=== PATIENT | female | born 1990 | race Caucasian/White ===

== ENCOUNTER 2019-12-13 21:17 | Emergency (ER) | payer OTHER ==
[2019-12-13] MEDS ORDERED: KETOROLAC 30 MG/ML INJ ONE (21:58)
[2019-12-13 21:59] LABS: Absolute Lymphocytes (CBC) 2.4 K/uL (0.7-4.9); Basophils % 0.2 % (0-1.3); Hematocrit 33.8 % (36.0-45.0); Lymphocytes % 40.1 % (15.3-44.8); MPV 8.5 fL (7.6-11.3); RBC Red Blood Cell Count 3.66 M/uL (3.86-4.86)
--- NOTE | 2019-12-13 22:04 | RAD REPORT ---
EXAM DESCRIPTION: RAD - Chest Single View - 12/13/2019 9:59 pm CLINICAL HISTORY: CHEST PAIN Chest pain. COMPARISON: CHEST PA AND LAT 2 VIEW dated 09/06/2012; CHEST PA AND LAT 2 VIEW dated 02/08/2009 FINDINGS: Portable technique limits examination quality. Mild reticular prominence is seen which could indicate underlying viral pneumonitis or bronchitis. No focal consolidation typical of bacterial pneumonia seen. The heart is normal in size. No displaced f ractures.
[2019-12-13 22:05] LABS: Urine Blood NEGATIVE (NEG); Urine Glucose NEGATIVE (NEG); Urine Protein NEGATIVE (NEG); Urine Specific Gravity 1.025 (1.005-1.030)
[2019-12-13 22:05] LABS: Protime INR 1.04
[2019-12-13 22:17] LABS: ALT/SGPT 17 U/L (12-78); AST/SGOT 13 U/L (15-37); Albumin 3.5 g/dL (3.4-5.0); Alkaline Phosphatase 33 U/L (45-117); BUN Blood Urea Nitrogen 19 mg/dL (7-18); Bicarbonate 28 mmol/L (21-32); Bilirubin Direct < 0.1 mg/dL (0-0.2); Bilirubin Total 0.3 mg/dL (0.2-1.0); Glucose Level 103 mg/dL (74-106); Magnesium 1.8 mg/dL (1.8-2.4); NT PRO-BNP 39 pg/mL (<125); Potassium 3.5 mmol/L (3.5-5.1); Protein, Total 6.3 g/dL (6.4-8.2); Sodium Level 141 mmol/L (136-145); Troponin (Emerg Dept Use Only) < 0.02 ng/mL (0.0-0.045)
--- NOTE | 2019-12-14 00:07 | ER ---
Nurse's Notes [facility] Name: Francheska Cevallos Age: 29 yrs Sex: Female : 1990 Arrival Date: 12/13/2019 Time: 21:17 Bed 19 Private MD: Diagnosis: Pneumonia, unspecified organism;Other chest pain Presentation: 12/12 21:32 Chief complaint: Patient states: Reports she was sitting on the couch and started ea having chest pain that started in the left breast and radiated to back. pt reports pain started four hours ago. Coronavirus screen: The patient has NOT traveled to a country currently being monitored by the [facility] within the last 14 days. Ebola Screen: No symptoms or risks identified at this time. Initial Sepsis Screen: Does the patient meet any 2 criteria? No. Patient's initial sepsis screen is negative. Does the patient have a suspected source of infection? No. Patient's initial sepsis screen is negative. Risk Assessment: Do you want to hurt yourself or someone else? Patient reports no desire to harm self or others. 21:32 Method Of Arrival: Ambulatory ea 21:32 Acuity: BEATRIS 3 ea Historical: - Allergies: 22:21 No Known Allergies; ea - Home Meds: 22:21 None [Active]; ea - PMHx: 22:21 None; ea - PSHx: 22:21 None; ea - Immunization history:: Adult Immunizations up to date. - Social history:: Smoking status: Patient denies any tobacco usage or history of. Screenin:34 Abuse screen: Denies threats or abuse. Nutritional screening: No deficits noted. ea Tuberculosis screening: No symptoms or risk factors identified. Fall Risk None identified. Assessment: 21:35 General: Appears uncomfortable. Pain: Complains of pain in anterior aspect of left ea upper chest and left breast Pain radiates to back Pain began 4 hours ago. Neuro: Level of Consciousness is awake, alert, obeys commands, Oriented to person, place, time, situation. Cardiovascular: Patient's skin is warm and dry. Respiratory: Airway is patent Respiratory effort is even, unlabored, Respiratory pattern is regular, symmetrical. Derm: Skin is dry, Skin is pale, Skin temperature is warm. 22:57 Reassessment: Patient and/or family updated on plan of care and expected duration. Pain ea level reassessed. Patient is alert, oriented x 3, equal unlabored respirations, skin warm/dry/pink. Returned form CT. 23:15 Reassessment: Patient and/or family updated on plan of care and expected duration. Pain ea level reassessed. Patient is alert, oriented x 3, equal unlabored respirations, skin warm/dry/pink. 12/13 00:24 Reassessment: Patient and/or family updated on plan of care and expected duration. Pain ea level reassessed. Patient is alert, oriented x 3, equal unlabored respirations, skin warm/dry/pink. Discharge instruction given to patient, verbalized the understanding of instruction. Vital Signs: 12/12 21:32 BP 95 / 53; Pulse 66; Resp 18; Temp 99.7; Pulse Ox 100% ; ea 23:05 BP 99 / 60; Pulse 68; Resp 18; Pulse Ox 100% on R/A; ea 12/13 00:20 BP 109 / 62; Pulse 70; Resp 18; Pulse Ox 100% ; ea ED Course: 12/12 21:17 Patient arrived in ED. cl3 21:22 Chaz Stevens MD is Attending Physician. tw4 21:32 Shruthi Leo RN is Primary Nurse. ea 21:34 Triage completed. ea 21:34 Patient has correct armband on for positive identification. Placed in gown. Bed in low ea position. Call light in reach. threat monitoring analyst on. Pulse ox on. NIBP on. 21:45 Pulse ox on. NIBP on. mb4 21:46 Arm band placed on right wrist. Patient placed in an exam room, on a stretcher, on ea pulse oximetry. 21:47 Inserted saline lock: 20 gauge in right antecubital area, using aseptic technique. ea Blood collected. Patient maintains SpO2 saturation greater than 95% on room air. 21:54 Urine collected: clean catch specimen, clear. mb4 21:59 XRAY Chest (1 view) In Process Unspecified. EDMS 22:21 No provider procedures requiring assistance completed. ea 23:09 CT Chest For PE Angio In Process Unspecified. EDMS Administered Medications: 21:57 Drug: TORadol 30 mg Route: IVP; Site: right antecubital; ea 12/13 00:06 Follow up: Response: No adverse reaction; Pain is decreased ea 00:15 Drug: AZITHromycin 500 mg Route: PO; ea 00:15 CANCELLED (Other Intervention Used): Zithromax 500 mg PO once ea Outcome: 00:05 Discharge ordered by tw4 00:26 Patient left the ED. ea Signatures: Dispatcher [employer] Shruthi Llamas, RN Chaz Soria ea, MD MD tw4 Lisa Solorzano4 Teresa Oates cl3
--- NOTE | 2019-12-14 00:08 | EDPHYS ---
Physician Documentation [facility] Name: Francheska Cevallos Age: 29 yrs Sex: Female : 1990 Arrival Date: 12/13/2019 Time: 21:17 Bed 19 Private MD: ED Physician Chaz Stevens HPI: 12/13 03:40 This 29 yrs old Female presents to ER via Ambulatory with complaints of Chest tw4 Pain. 03:40 The patient or guardian reports chest pain that is located primarily in the anterior tw4 chest wall, left. The pain radiates to left back. Associated signs and symptoms: Pertinent positives:. The chest pain is described as dull. Duration: The patient or guardian reports a single episode. Modifying factors: The symptoms are alleviated by nothing. the symptoms are aggravated by nothing. Severity of pain: At its worst the pain was moderate in the emergency department the pain is unchanged. Historical: - Allergies: 12/12 22:21 No Known Allergies; ea - Home Meds: 22:21 None [Active]; ea - PMHx: 22:21 None; ea - PSHx: 22:21 None; ea - Immunization history:: Adult Immunizations up to date. - Social history:: Smoking status: Patient denies any tobacco usage or history of. ROS: 12/13 03:40 Constitutional: Negative for fever, chills, and weight loss, Eyes: Negative for injury, tw4 pain, redness, and discharge, Respiratory: Negative for shortness of breath, cough, wheezing, and pleuritic chest pain, Abdomen/GI: Negative for abdominal pain, nausea, vomiting, diarrhea, and constipation, Back: Negative for injury and pain, MS/Extremity: Negative for injury and deformity, Skin: Negative for injury, rash, and discoloration, Neuro: Negative for headache, weakness, numbness, tingling, and seizure. Cardiovascular: Positive for chest pain, Negative for edema, orthopnea, palpitations. Exam: 03:40 Constitutional: This is a well developed, well nourished patient who is awake, alert, tw4 and in no acute distress. Head/Face: Normocephalic, atraumatic. Chest/axilla: Normal chest wall appearance and motion. Nontender with no deformity. No lesions are appreciated. Cardiovascular: Regular rate and rhythm with a normal S1 and S2. No gallops, murmurs, or rubs. Normal PMI, no JVD. No pulse deficits. Respiratory: Lungs have equal breath sounds bilaterally, clear to auscultation and percussion. No rales, rhonchi or wheezes noted. No increased work of breathing, no retractions or nasal flaring. Abdomen/GI: Soft, non-tender, with normal bowel sounds. No distension or tympany. No guarding or rebound. No evidence of tenderness throughout. Back: No spinal tenderness. No costovertebral tenderness. Full range of motion. MS/ Extremity: Pulses equal, no cyanosis. Neurovascular intact. Full, normal range of motion. Neuro: Awake and alert, GCS 15, oriented to person, place, time, and situation. Cranial nerves II-XII grossly intact. Motor strength 5/5 in all extremities. Sensory grossly intact. Cerebellar exam normal. Normal gait. Psych: Awake, alert, with orientation to person, place and time. Behavior, mood, and affect are within normal limits. Vital Signs: 12/12 21:32 BP 95 / 53; Pulse 66; Resp 18; Temp 99.7; Pulse Ox 100% ; ea 23:05 BP 99 / 60; Pulse 68; Resp 18; Pulse Ox 100% on R/A; ea 12/13 00:20 BP 109 / 62; Pulse 70; Resp 18; Pulse Ox 100% ; ea MDM: 12/12 21:31 Patient medically screened. tw4 12/13 03:47 Data reviewed: vital signs, nurses notes. Data reviewed: lab test result(s), CBC, tw4 electrolytes, hepatic panel, EKG, radiologic studies, CT scan, plain films. Data interpreted: Pulse oximetry: Interpretation: normal. Counseling: I had a detailed discussion with the patient and/or guardian regarding: the historical points, exam findings, and any diagnostic results supporting the discharge/admit diagnosis, lab results, radiology results. Medication response: Toradol markedly relieved the patient's pain. Response to treatment: and as a result, I will admit patient. 12/12 21:43 Order name: Basic Metabolic Panel; Complete Time: 22:25 ea 12/12 22:25 Interpretation: Normal except: BUN 19; GFR 58. tw4 12/12 21:43 Order name: CBC with Diff; Complete Time: 22:25 ea 12/12 22:26 Interpretation: Normal except: RBC 3.66; HGB 11.5; HCT 33.8. [facility] 12/12 21:43 Order name: LFT's; Complete Time: 22:25 ea 12/12 22:26 Interpretation: Normal except: AST 13; ALK 33; TP 6.3. [facility] 12/12 21:43 Order name: Magnesium; Complete Time: 22:25 ea 12/12 22:26 Interpretation: Within normal limits: MG 1.8. 12/12 21:43 Order name: NT PRO-BNP; Complete Time: 22:25 12/12 22:26 Interpretation: Within normal limits: NT PRO-BNP 39. 12/12 21:43 Order name: PT-INR; Complete Time: 22:25 12/12 22:26 Interpretation: Within normal limits: PT 12.3. 12/12 21:43 Order name: Troponin (emerg Dept Use Only); Complete Time: 22:25 12/12 22:26 Interpretation: Within normal limits: TROPED < 0.02. 12/12 21:43 Order name: XRAY Chest (1 view); Complete Time: 22:25 12/12 22:26 Interpretation: No acute disease. [facility] 12/12 21:54 Order name: Urine Dipstick--Ancillary (enter results); Complete Time: 22:25 [facility] 12/12 22:26 Interpretation: Within normal limits. 12/12 21:54 Order name: Urine --Ancillary (enter results); Complete Time: 22:23 mw 12/12 21:58 Order name: D-Dimer; Complete Time: 22:25 EDMN 12/12 22:26 Interpretation: Abnormal: D-DIMER 623. 12/12 22:08 Order name: CT Chest For PE Angio 12/12 21:43 Order name: EKG; Complete Time: 21:44 ea 12/12 21:43 Order name: Cardiac monitoring; Complete Time: 21:46 ea 12/12 21:43 Order name: EKG - Nurse/Tech; Complete Time: 21:46 ea 12/12 21:43 Order name: IV Saline Lock; Complete Time: :46 ea 12/12 21:43 Order name: Labs collected and sent; Complete Time: 21:46 12/12 21:43 Order name: O2 Per Protocol; Complete Time: 21:46 ea 12/12 21:43 Order name: O2 Sat Monitoring; Complete Time: 21:46 ea Administered Medications: 12/12 21:57 Drug: TORadol 30 mg Route: IVP; Site: right antecubital; ea 12/13 00:06 Follow up: Response: No adverse reaction; Pain is decreased ea 00:15 Drug: AZITHromycin 500 mg Route: PO; ea 00:15 CANCELLED (Other Intervention Used): Zithromax 500 mg PO once ea Disposition: 03:56 Chart complete. tw4 Disposition: 12/14/19 00:05 Discharged to Home. Impression: Pneumonia, unspecified organism, Other chest pain. - Condition is Stable. - Discharge Instructions: Nonspecific Chest Pain, Community-Acquired Pneumonia, Adult. - Prescriptions for Zithromax 500 mg Oral Tablet - take 1 tablet by ORAL route once daily for 3 days; 3 tablet. - Medication Reconciliation Form, Thank You Letter, Antibiotic Education, Prescription Opioid Use form. - Follow up: Private Physician; When: Upon discharge from the Emergency Department; Reason: Recheck today's complaints, Continuance of care, Re-evaluation by your physician. - Problem is new. - Symptoms have improved. Signatures: Dispatcher [employer] Shruthi Llamas RN RN ea Wadley, Terrence, MD MD tw4 Corrections: (The following items were deleted from the chart) 12/12 21:58 21:51 D-DIMER+[id number].BRZ ordered. [facility] 12/13 00:15 00:07 Zithromax 500 mg PO once ordered. [facility] 00:26 00:05 12/14/2019 00:05 Discharged to Home. Impression: Pneumonia, unspecified organism; ea Other chest pain. Condition is Stable. Forms are Medication Reconciliation Form, Thank You Letter, Antibiotic Education, Prescription Opioid Use. Follow up: Private Physician; When: Upon discharge from the Emergency Department; Reason: Recheck today's complaints, Continuance of care, Re-evaluation by your physician. Problem is new. Symptoms have improved. tw4
[2019-12-14] MEDS ORDERED: AZITHROMYCIN 250 MG TAB ONE (00:13)
[2019-12-14 01:05] VITALS: TEMP 99.7; O2SAT 100
[2019-12-14 01:08] VITALS: BP 109/62
--- NOTE | 2019-12-14 06:55 | EKG ---
Test Date: 2019-12-13 Test Time: 21:23:11 Ems Coordinator: DARIAT MEASUREMENT RESULTS: Intervals: Rate: 62 FL: 138 QRSD: 102 QT: 430 QTc: 436 Cecil: P: 57 FL: 138 QRS: 55 T: 54 INTERPRETIVE STATEMENTS: Normal sinus rhythm Normal ECG No previous ECG available for comparison Electronically Signed On 12-14-19 06:54:39 CDT by Ru Zavala
--- NOTE | 2019-12-14 09:36 | RAD REPORT ---
EXAM DESCRIPTION: CT CHEST ANGIOGRAPHY WITH IV CONTRAST CLINICAL HISTORY: CHEST PAIN COMPARISON: None Available TECHNIQUE: Multiple helical axial tomographic images were obtained of the chest following administra tion of intravenous contrast per angiographic protocol. MIP reformatted images were obtained. This exam was performed according to our departmental dose-optimization program, which includes autom ated exposure control, adjustment of the mA and/or kV according to patient size and/or use of iterati ve reconstruction technique. FINDINGS: Thyroid gland: unremarkable. Axilla: unremarkable. Pulmonary arteries: Pulmonary arteries appear patent. No evidence of pulmonary embolism. Aorta: No evidence of aortic dissection or aneurysm. Mediastinum: Unremarkable. No adenopathy. Heart: Heart is normal in size. Lungs/airways: Small area of consolidation in the lateral lingula abutting the pleural surface noted. Airways are patent. Small nonspecific pleural-based calcification in the posterior right lower lobe is noted. Pleural spaces: No significant pleural effusion. No pneumothorax. Osseous: Unremarkable. Soft tissues: Unremarkable. Visualized abdomen: Unremarkable. IMPRESSION: 1. Small, pleural-based area of consolidation in the lingula which could be related to a n infectious or inflammatory process such as pneumonia. 2. No evidence of pulmonary embolus. Electronically signed by: Jose Jain MD 12/13/2019 11:25 PM CDT Due to temporary technical issues with the PACS/Fluency reporting system, reports are being signed by the in house radiologist as a courtesy to ensure prompt reporting. The interpreting radiologist is f ully responsible for the content of the report.
== END 2019-12-14 00:26 | disposition home or self-care (01) ==
LOC: ER 21:17
DX: J18.9 Pneumonia, unspecified organism (principal)
CPT/HCPCS: 93005; 85025; 80048; 36415; 83735; 81025; 85610; 85379; 80076; 81003; 84484; 83880; 71275; 71045; 96374; 99285; Q9967

== ENCOUNTER 2022-09-03 10:21 | Emergency (ER) | payer OTHER ==
--- OUTSIDE RECORDS SUMMARY | 2022-09-03 10:26 | XMS REPORT | Continuity of Care Document ---
:1990 Author Organization [facility] t Address [address] [place] [address] Care Team Providers Name Role Phone AGNIESZKA GILLIS Attending Clinician Unavailable PAM_EDUARDO_Cleve_Cecil Attending Clinician Unavailable Cheng Poon Attending Clinician [phone] Cornell Richardson Attending Clinician Unavailable Cheng Poon Attending Clinician Unavailable Ledy Attending Clinician Unavailable Clarice_Cecil Admitting Clinician Unavailable Cheng Poon Admitting Clinician Unavailable Ledy Admitting Clinician Unavailable Payers Payer Name Policy Type Policy Number Effective Date Expiration Date S rian AETNA 2 [id number] 2022 00:00:00 AETNA (POS) [id number] 2013 00:00:00 AETNA HMO [id number] 2013 00:00:00 Problems Condition Condition Condition Status Onset Resolution Last Treating Co mments Source Name Details Category Date Date Treatment Clinician Date Irregular Irregular Problem Active Susana via periods Periods Medical Allergies, Adverse Reactions, Alerts Allergy Allergy Status Severity Reaction(s) Onset Inactive Treating Comm ents Source Name Type Date Date Clinician No Known DA Active U 2020-09 [facility] No Known DA Active U 2015-09 [facility] 0-04 [facility] 00 [facility] NO KNOWN Drug Active [facility] ALLERGIE Class ity of [facility] Social History Smoking Status Start Date Stop Date Source Never Smoker [facility] Medications Ordered Filled Start Stop Current Ordering Indication Dosage Frequency Signature Comments Components Source Medication Medication Date Date Medication? Clinician (SIG) Name Name docusate docusate No docusate Susana via calcium calcium calcium Medica l Lisbeth 0.35 Lisbeth 0.35 No 1 Q1D Lisbeth 0.35 [facility] mg tablet mg tablet mg tablet Medical Take 1 Take 1 Take 1 tablet tablet tablet every day every day every day by oral by oral by oral route. route. route. ibuprofen ibuprofen No ibuprofen [facility] 600 mg 600 mg 600 mg Medical tablet TAKE tablet TAKE tablet 1 TABLET BY 1 TABLET BY TAKE 1 MOUTH EVERY MOUTH EVERY TABLET BY 6 HOURS 6 HOURS MOUTH NEEDED FOR NEEDED FOR EVERY 6 MILD PAIN MILD PAIN HOURS NEEDED FOR MILD PAIN magnesium magnesium No magnesium [facility] nitrofurant nitrofurant No nitrofuran [facility] oin oin toin Medical monohydrate monohydrate monohydrat /macrocryst /macrocryst e/macrocry als 100 mg als 100 mg stals 100 capsule capsule mg capsule TAKE 1 TAKE 1 TAKE 1 CAPSULE BY CAPSULE BY CAPSULE BY MOUTH TWICE MOUTH TWICE MOUTH A DAY. TAKE A DAY. TAKE TWICE A WITH FOOD WITH FOOD DAY. TAKE WITH FOOD No Susana via Medical docusate docusate No docusate Susana via calcium calcium calcium Medica l magnesium magnesium No magnesium [facility] No Susana via Medical docusate docusate No docusate Susana via calcium calcium calcium Medica l magnesium magnesium No magnesium [facility] No Susana via Medical docusate docusate No docusate Susana via calcium calcium calcium Medica l magnesium magnesium No magnesium [facility] No Susana via Medical Immunizations Ordered Immunization Filled Immunization Date Status Commen ts Source Name Name influenza, influenza, 2016-06-06 Completed [facility] intradermal, intradermal, 11:53:56 quadrivalent, quadrivalent, preservative free preservative free influenza, influenza, 2016-06-06 Completed [facility] intradermal, intradermal, 11:53:56 quadrivalent, quadrivalent, preservative free preservative free influenza, influenza, 2016-06-06 Completed [facility] intradermal, intradermal, 11:53:56 quadrivalent, quadrivalent, preservative free preservative free influenza, influenza, 2016-06-06 Completed [facility] intradermal, intradermal, 11:53:56 quadrivalent, quadrivalent, preservative free preservative free Tdap Tdap 2013-11-28 Completed [facility] 00:00:00 Tdap Tdap 2013-11-28 Completed [facility] 00:00:00 Tdap Tdap 2013-11-28 Completed [facility] 00:00:00 Tdap Tdap 2013-11-28 Completed [facility] 00:00:00 influenza, influenza, 2013-07-31 Completed [facility] unspecified unspecified 00:00:00 formulation formulation influenza, influenza, 2013-07-31 Completed [facility] unspecified unspecified 00:00:00 formulation formulation influenza, influenza, 2013-07-31 Completed [facility] unspecified unspecified 00:00:00 formulation formulation influenza, influenza, 2013-07-31 Completed [facility] unspecified unspecified 00:00:00 formulation formulation HPV, unspecified HPV, unspecified 2006-04-30 Completed [facility] formulation formulation 00:00:00 HPV, unspecified HPV, unspecified 2006-04-30 Completed [facility] formulation formulation 00:00:00 HPV, unspecified HPV, unspecified 2006-04-30 Completed [facility] formulation formulation 00:00:00 HPV, unspecified HPV, unspecified 2006-04-30 Completed [facility] formulation formulation 00:00:00 Vital Signs Vital Name Observation Time Observation Value Comments Source BP Diastolic 2021-11-02 00:00:00 78 mm[Hg] Reena Delgadillo [facility] Height 2021-11-02 00:00:00 63 [in_i] [facility] BMI (Body Mass Index) 2021-11-02 00:00:00 31 kg/m2 [facility] BP Systolic 2021-11-02 00:00:00 122 mm[Hg] Reena Delgadillo [facility] Body Weight 2021-11-02 00:00:00 175 [lb_av] Reena Delgadillo [facility] BP Diastolic 2021-09-15 00:00:00 81 mm[Hg] Reena Delgadillo [facility] Height 2021-09-15 00:00:00 63 [in_i] Reena Delgadillo ed[facility] BMI (Body Mass Index) 2021-09-15 00:00:00 34 kg/m2 [facility] BP Systolic 2021-09-15 00:00:00 122 mm[Hg] [facility] Body Weight 2021-09-15 00:00:00 192.2 [lb_av] [facility] BP Diastolic 2021-09-08 00:00:00 80 mm[Hg] [facility] Height 2021-09-08 00:00:00 63 [in_i] [facility] BP Systolic 2021-09-08 00:00:00 122 mm[Hg] [facility] Body Weight 2021-09-08 00:00:00 191 [lb_av] [facility] BP Diastolic 2021-02-07 00:00:00 72 mm[Hg] Reena Delgadillo ed[facility] Height 2021-02-07 00:00:00 63 [in_i] Reena Delgadillo ed[facility] BMI (Body Mass Index) 2021-02-07 00:00:00 27.8 kg/m2 [facility] BP Systolic 2021-02-07 00:00:00 114 mm[Hg] Reena Delgadillo ed[facility] Body Weight 2021-02-07 00:00:00 157 [lb_av] Reena Delgadillo [facility] Procedures Procedure Date / Time Performed Performing Clinician Moises burton [id number] 2021-09-17 00:00:[address] [id number] 2021-09-17 00:00:[address] US, obstetric, 1st 2021-02-07 00:00:00 [facility] Plan of Care Planned Activity Planned Date Details Comments Source Diagnostic Test 2021-09-15 00:00:00 urinalysis, dipstick [facility] Pending [code = urinalysis, dipstick] Encounters Start End Encounter Admission Attending Care Care Encounter Source Date/Time Date/Time Type Type Clinicians Facility Department ID 2022-09-03 2022-09-03 Outpatient ROSEMARIE GILLIS [id number] Rosemarie 00:00:00 00:00:00 AGNIESZKA garcia 2021-11-04 2021-11-04 Outpatient GC_SWHAOMC_ PRIV PRIV [id number] [facility] 06:00:00 06:00:00 Cleve_G [id number] [facility] 2021-11-02 2021-11-02 Outpatient GC_SWHAOMC_ PRIV PRIV [id number] [facility] 12:18:00 12:18:00 Cleve_G [id number] [facility] 2021-11-02 2021-11-02 Cheng [facility] 00:00:00 00:00:00 Pravin [facility] - Medic al Cleve GC_SWHAOMC_ MD: [address] [facility], [address], [place] [address] , Ph. 2021-11-02 2021-11-02 Outpatient Cleve, PRIV PRIV [id number] 00:00:00 00:00:00 Cheng [id number] Pravin [id number] 2021-11-01 2021-11-01 Outpatient GC_SWHAOMC_ PRIV PRIV [id number] [facility] 06:06:00 06:06:00 Cleve_G [id number] [facility] 2021-10-28 2021-10-28 Outpatient GC_SWHAOMC_ PRIV PRIV [id number] [facility] 12:08:00 12:08:00 Cleve_G [id number] [facility] 2021-10-07 2021-10-07 Outpatient GC_SWHAOMC_ PRIV PRIV [id number] [facility] 04:32:00 04:32:00 Cleve_G [id number] [facility] 2021-09-19 2021-09-19 Emergency EM Frida-G [facility] [id number] [facility] 15:14:00 19:43:00 omez, 24 [facility] 2021-09-17 2021-09-19 Inpatient EM Cleve [facility] OB [id number] [facility] 05:57:00 10:34:00 Cheng [facility] 2021-09-16 2021-09-16 Outpatient GC_SWHAOMC_ PRIV PRIV [id number] [facility] 02:59:00 02:59:00 Bird [id number] Medi gill 2021-09-15 2021-09-15 Outpatient GC_SWHAOMC_ PRIV PRIV [id number] [facility] 03:57:00 03:57:00 Bird [id number] Medi g[facility] 2021-09-15 2021-09-15 Outpatient Cleve PRIV PRIV [id number] 00:00:00 00:00:00 Cheng [id number] Pravin [id number] 2021-09-15 2021-09-15 Cheng [facility] [id number] [facility] 00:00:00 00:00:00 [facility] SHERYL Lazo MD: [address], [place] [address] , Ph. 2021-09-09 2021-09-09 Outpatient GC_SWHAOMC_ PRIV PRIV [id number] [facility] 01:46:00 01:46:00 Bird [id number] Medi gill 2021-09-08 2021-09-08 Outpatient GC_SWHAOMC_ PRIV PRIV [id number] [facility] 10:39:00 10:39:00 Bird [id number] Medi gill 2021-09-08 2021-09-08 Outpatient Cleve, PRIV PRIV [id number] 00:00:00 00:00:00 Cheng [id number] Pravin [id number] 2021-09-08 2021-09-08 Cheng [facility] [id number] [facility] 00:00:00 00:00:00 [facility] katlin PoonSHERYL rodriguez MD: [address] [facility] [address], [address], [place] [address] , Ph. 2021-09-01 2021-09-01 Cheng [facility] [id number] [facility] 00:00:00 00:00:00 [facility] - Medic SHERYL Lazo MD: [address], [place] [address] , Ph. 2021-08-28 2021-08-28 Outpatient GC_SWHAOMC_ PRIV PRIV [id number] [facility] 02:12:00 02:12:00 Bird [id number] [facility] 2021-08-18 2021-08-18 Cheng [facility]IV [facility] [id number] [facility] 00:00:00 00:00:00 Pravin [facility] - Medic SHERYL Lazo MD: [address], [place] [address] , Ph. 2021-02-08 2021-02-08 Outpatient GC_SWHAOMC_ PRIV PRIV [id number] [facility] 10:38:00 10:38:00 Bird [id number] [facility] 2021-02-07 2021-02-07 Outpatient GC_SWHAOMC_ PRIV PRIV [id number] [facility] 11:21:00 11:21:00 Bird [id number] [facility] 2021-02-07 2021-02-07 Outpatient Cleve, PRIV PRIV [id number] 00:00:00 00:00:00 Cheng [id number] Pravin [id number] 2021-02-07 2021-02-07 Cheng [facility] 11 [facility] 00:00:00 00:00:00 Pravin [facility] - Medic SHERYL Lazo MD: [address] [facility], [address], [place] [address] , Ph. 2021-02-06 2021-02-06 Outpatient GC_SWHAOMC_ PRIV PRIV [id number] [facility] 02:12:00 02:12:00 Bird [id number] [facility] 2021-01-20 2021-01-20 Outpatient GC_SWHATBIC PRIV PRIV [id number] [facility] 01:05:00 01:05:00 _Jyotimichael [id number] Medic al 2019-12-25 2019-12-25 Outpatient R [facility] [id number] [facility] 20:15:00 20:15:00 [facility] 2019-12-25 2019-12-25 Outpatient R [facility] [id number] [facility] 20:15:00 20:15:00 [id number] [facility] Results Test Description Test Time Test Comments Results Result Comments Source DRUGS OF ABUSE SCREEN 2021-09-19 19:59:00 Test Item Value Reference Range Interpretation Comme nts UR COCAINE (test code = COCAU) NEGATIVE NEGATIVE DETECTION CUT OFF: 150 ng/mL UR CANNABINOIDS (test code = CANU) NEGATIVE NEGATIVE DETECTION CUT OFF: 50 ng/mL UR AMPHETAMINE (test code = AMPHU) NEGATIVE NEGATIVE DETECTION CUT OFF: 500 ng/mL UR BARBITURATE QUAL (test code = NEGATIVE NEGATIVE DETECTION CUT OFF: 200 ng/mL BARBQLU) UR BENZODIAZEPINE (test code = NEGATIVE NEGATIVE DETECTION CUT OFF: 150 ng/mL BENZU) UR OPIATES QUAL (test code = NEGATIVE NEGATIVE DETECTION CUT OFF: 100 ng/mL OPIAQLU) UR PHENCYCLIDINE (PCP) (test code = NEGATIVE NEGATIVE DETECTION CUT OFF: 25 ng/mL PHENCU) B-TYPE NATRIURETIC [id number] 19:09:00 Test Item Value Reference Range Interpretation Comments B-TYPE NATRIURETIC PEPTIDE (test 65.60 pg/mL 0-100 N code = BNP) COMPREHENSIVE METABOLIC [id number] 17:22:00 Test Item Value Reference Range Interpretation Comments SODIUM (test code = NA) 142 mEq/L 135-145 N POTASSIUM (test code = K) 4.1 mEq/L 3.5-5.0 N CHLORIDE (test code = CL) 107 mEq/L 100-115 N CARBON DIOXIDE (test code = CO2) 26 mEq/L 22-31 N ANION GAP (test code = GAP) 13.40 10-20 N GLUCOSE (test code = GLU) 87 mg/dL 65-110 N BLOOD UREA NITROGEN (test code = 10 mg/dL 7-18 N BUN) GLOMERULAR FILTRATION RATE (test 115 ml/min >60 N code = GFR) CREATININE (test code = CREAT) 0.6 mg/dL 0.5-1.0 N TOTAL PROTEIN (test code = PROT) 6.1 gm/dL 6.3-8.2 L ALBUMIN (test code = ALB) 2.3 gm/dL 3.4-4.8 L CALCIUM (test code = CA) 8.8 mg/dL 8.4-10.2 N BILIRUBIN TOTAL (test code = 0.1 mg/dL 0.2-1.0 L BILT) SGOT/AST (test code = AST) 23 units/L 15-37 N SGPT/ALT (test code = ALT) 19 units/L 12-78 N ALKALINE PHOSPHATASE TOTAL (test 130 units/L 46-116 H code = ALKP) [id number] 17:22:00 Test Item Value Reference Range Interpretation Comments TROPONIN-I (test 4.1 pg/mL <51.4 N Please Note :New method is code = TROPI) in use for laurent suring Troponin Sep 14 2021Units are pg/mL which differs from the prior testmethodology (ng/mL) by a factor of 100 0. D-DIMER [id number] 16:47:00 Test Item Value Reference Range Interpretation Comments D-DIMER QUANT 1539 ng/mLDDU <255 H Reference Ra nge in (test code = : <570 DDIMER) ng/ml A positive test d oes not provide a defin itive diagnosis ofDVT and indicates the n eed for follow up clini gill studies. The predictive valu e of a negative test i s 98% for rulingout D VT. UA RFLX MICR CULT IF [id number] 16:42:00 Test Item Value Reference Range Interpretation Comments UA COLOR (test code = YELLOW YELLOW COLU) UA APPEARANCE (test code Slightly-Cloudy CLEAR = APPU) UA GLUCOSE DIPSTICK (test NEGATIVE NEG code = DGLUU) UA BILIRUBIN DIPSTICK NEGATIVE NEG (test code = BILU) UA KETONE DIPSTICK (test NEGATIVE NEG code = KETU) UA SPECIFIC GRAVITY (test 1.009 1.001-1.035 N code = SGU) UA BLOOD DIPSTICK (test 3+ NEG A code = IZABELA) UA PH DIPSTICK (test code 7.0 5-9 = SREE) UA PROTEIN DIPSTICK (test NEGATIVE NEG code = PROU) UA UROBILINIOGEN DIPSTICK NEGATIVE mg/dL NEG (test code = URO) UA NITRITE DIPSTICK (test NEG NEG code = NILE) UA LEUKOCYTE ESTERASE 3+ NEG A DIPSTICK (test code = LEUU) UA WBC (test code = WBCU) TOO NUMEROUS TO CNT NONE SEEN A #/hpf UA RBC (test code = RBCU) TOO NUMEROUS TO CNT NONE SEEN A #/hpf UA EPITHELIAL CELLS (test RARE #/HPF RARE-FEW code = EPIU) UA BACTERIA (test code = RARE /HPF RARE-FEW BACU) UA MUCUS (test code = RARE NONE SEEN MUCU) Indication for culture: Suprapubic PainSpecimen Description: CLEAN CATCHCBC W/AUTO [id number] 16:09:00 Test Item Value Reference Range Interpretation Comments WHITE BLOOD CELL (test code = WBC) 9.8 K/mm3 6.5-12.3 N RED BLOOD CELL (test code = RBC) 3.15 M/mm3 3.51-4.69 L HEMOGLOBIN (test code = HGB) 10.2 g/dL 10.1-13.8 N HEMATOCRIT (test code = HCT) 30.5 % 32.5-41.8 L MEAN CELL VOLUME (test code = MCV) 96.8 fL 84.6-96.6 H MEAN CELL HGB (test code = MCH) 32.4 pg 27.3-33.9 N MEAN CELL HGB CONCETRATION (test 33.4 gm/dL 32.0-34.2 N code = MCHC) RED CELL DISTRIBUTION WIDTH (test 13.8 % 12.2-16.3 N code = RDW) PLATELET COUNT (test code = PLT) 204 K/mm3 134-363 N MEAN PLATELET VOLUME (test code = 10.6 fL 9.2-12.7 N MPV) NEUTROPHIL % (test code = NT%) 74.1 % 57.9-77.3 N LYMPHOCYTE % (test code = LY%) 14.4 % 14.5-29.7 L MONOCYTE % (test code = MO%) 8.0 % 3.6-10.2 N EOSINOPHIL % (test code = EO%) 1.0 % 0.0-3.0 N BASOPHIL % (test code = BA%) 0.4 % 0.1-0.9 N NEUTROPHIL # (test code = NT#) 7.3 K/mm3 LYMPHOCYTE # (test code = LY#) 1.4 K/mm3 MONOCYTE # (test code = MO#) 0.8 K/mm3 EOSINOPHIL # (test code = EO#) 0.10 K/mm3 BASOPHIL # (test code = BA#) 0.0 K/mm3 RBC MORPHOLOGY REQUIRED (test code NORMAL NORMAL = RBCM) PLATELET MORPHOLOGY REQUIRED (test NORMAL NORMAL code = PLTMR) - CT ANGIO [id number] 00:00:00 [facility] 1990 Sex: F Patient Name: ASH EVANS Unit No: [id number] EXAMS: CPT CODE: [id number] CT ANGIO CHEST 46282 Radiation Dose CTDIVOL = 22.2 (mGy): DLP = 393.93 (mGy-cm) PROCEDURE INFORMATION: Exam: CTA Chest With Contrast Exam date and time: 09/19/2021 6:20 PM Age: 31 years old Clinical indication: Other: Palpitations , chest pain elevated d dimer TECHNIQUE: Imaging protocol: Computed tomographic angiography of the chest with contrast. 3D rendering (Not supervised by radiologist): MIP and/or 3D reconstructed images were created by the technologist. Radiation optimization: All CT scans at this facility use at least one of these dose optimization techniques: automated exposure control; mA and/or kV adjustment per patient size (includes targeted exams where dose is matched to clinical indication); or iterative reconstruction. Contrast material: ISOVUE 300; Contrast volume: 100 ml; Contrast route: INTRAVENOUS (IV); COMPARISON: No relevant prior studies available. RADIATION DOSE METRICS: CTDI volume (mGy): 22.2 Total DLP (mGy-cm): 393.93 FINDINGS: Pulmonary arteries: Normal. No pulmonary emboli. Aorta: Unremarkable. No aortic aneurysm. No aortic dissection. Lungs: Unremarkable. No consolidation. No masses. Pleural spaces: Unremarkable. No pneumothorax. No pleural effusion. Heart: Mild enlargement of all 4 cardiac chambers. No pericardial effusion. Lymph nodes: Unremarkable. No enlarged lymph nodes. Bones/joints: Unremarkable. No acute fracture. Soft tissues: Heterogenous breast tissue is not fully included onthe study [facility] NAME: ASH EVANS Radiology Department PHYS: Horace Garcíairo [address] : 1990 AGE: 31 SEX: F [place] [address] LOC: SamiraERS PHONE #: [phone] EXAM DATE: 09/19/2021 STATUS: REG ER FAX #: [phone] RAD NO: Page 1 Signed Report 1 Patient Name: ASH EVANS Unit No: [id number] EXAMS: CPT CODE: [id number] ANGIO CHEST 18920 (Continued) IMPRESSION: No acute process within chest. No pulmonary embolus. at 1911 Reported and signed by: Barbara Plunkett MD CC: Cornell Richardson MD; Cheng Poon Technologist: Kamini Oleary RT, CT CTDI: 22.20 DLP: 393.93 Trnscrbd D/ (1910) GCD.CPS [facility] NAME: GANESH SEGUNDOASH RAYMUNDO Radiology Department PHYS: Cornell García [address] : 1990 AGE: 31 SEX: F [place], [place] [address] LOC: SamiraERS PHONE #: [phone] EXAM DATE: 09/19/2021 STATUS: REG ER FAX #: [phone] RAD NO: Page 2 Signed Report 1 Patient Name: ASH EVANS Unit No: [id number] EXAMS: CPT CODE: [id number] CT ANGIO CHEST 35112 (Continued) Orig Print D/T: S: 09/19/2021 (1910) [facility] NAME: CRISTINAASH Radiology Department PHYS:SASHA RichardsonCornell [address] : 1990 AGE: 31 SEX: F [place], [place] [address] LOC: BERTHA PHONE #: [phone] EXAM DATE: 09/19/2021 STATUS: REG ER FAX #: [phone] RAD NO: Page 3 Signed Report 1HGB [id number] 07:47:00 Test Item Value Reference Range Interpretation Comments HEMOGLOBIN (test code = HGB) 9.4 g/dL 10.1-13.8 L HEMATOCRIT (test code = HCT) 29.2 % 32.5-41.8 L AG HEPATITIS B [id number] 07:22:00 Test Item Value Reference Range Interpretation Comments AG HEPATITIS B SURFACE (test code NONREACTIVE NONREACTIVE = HBSAG) AB HEPATITIS C [id number] 07:22:00 Test Item Value Reference Range Interpretation Comments AB HEPATITIS C (test code = NONREACTIVE NONREACTIVE HCVAB) SIGNAL TO CUTOFF (test code = <0.02 <0.80 N CUTOFF) AB [id number] 07:22:00 Test Item Value Reference Range Interpretation Comments AB TREPONEMA (test code = TREPAB) NONREACTIVE NONREACTIVE AB HIV 1 07:22:00 Test Item Value Reference Range Interpretation Comments AB HIV 1 2 (test NONREACTIVE NONREACTIVE [facility] code = [id number]) 4th Gen HIV Ag/Ab Combo Screen CBC W/AUTO [id number] 06:27:00 Test Item Value Reference Range Interpretation Comments WHITE BLOOD CELL (test code = WBC) 12.5 K/mm3 6.5-12.3 H RED BLOOD CELL (test code = RBC) 3.51 M/mm3 3.51-4.69 N HEMOGLOBIN (test code = HGB) 11.4 g/dL 10.1-13.8 N HEMATOCRIT (test code = HCT) 33.9 % 32.5-41.8 N MEAN CELL VOLUME (test code = MCV) 96.6 fL 84.6-96.6 N MEAN CELL HGB (test code = MCH) 32.5 pg 27.3-33.9 N MEAN CELL HGB CONCETRATION (test 33.6 gm/dL 32.0-34.2 N code = MCHC) RED CELL DISTRIBUTION WIDTH (test 13.7 % 12.2-16.3 N code = RDW) PLATELET COUNT (test code = PLT) 237 K/mm3 134-363 N MEAN PLATELET VOLUME (test code = 10.8 fL 9.2-12.7 N MPV) NEUTROPHIL % (test code = NT%) 70.4 % 57.9-77.3 N LYMPHOCYTE % (test code = LY%) 17.8 % 14.5-29.7 N MONOCYTE % (test code = MO%) 8.5 % 3.6-10.2 N EOSINOPHIL % (test code = EO%) 0.7 % 0.0-3.0 N BASOPHIL % (test code = BA%) 0.4 % 0.1-0.9 N NEUTROPHIL # (test code = NT#) 8.8 K/mm3 LYMPHOCYTE # (test code = LY#) 2.2 K/mm3 MONOCYTE # (test code = MO#) 1.1 K/mm3 EOSINOPHIL # (test code = EO#) 0.09 K/mm3 BASOPHIL # (test code = BA#) 0.1 K/mm3 RBC MORPHOLOGY REQUIRED (test code NORMAL NORMAL = RBCM) PLATELET MORPHOLOGY REQUIRED (test NORMAL NORMAL code = PLTMR) COVID 19 Asymptomatic [facility] [id number] 06:20:00 Test Item Value Reference Range Interpretation Comments COVID 19 NEGATIVE NEGATIVE This test has b een Asymptomatic IH AG authorize d only for the (test code = detection ofpro teins from COVNONPUIAG) SARS-CoV-2, not for any other viruses orpathogens. Ne gative results should be treated as presumptive andconfirmed wi th a molecular assay , if necessary for patientmanageme nt. Negative result s do not rule out COVID- 19 andshould not b e used as the sole basis for treatment orpat ient management deci sions, including infec tion controldecision s. Negative result s should be considered i n thecontext of a patient's recent exposure s, history and thepresence of clinical signs and symptoms consis tent withCOVID-19. T his test has not been FD A cleared or approved; th e test hasbeen authori willis by FDA under an Emerge ncy Use Authorization(E UA) for use by chip chan certified under the CLIA thatmeet the re quirements to perform mode rate, high or waivedcomple xity tests. This simran t is authorized for use at thePoint of Car e (POC), i.e., in patien t care settingsoperati ng under a CLIA Certificat e of Waiver, Certifi willie ofCompliance, o r Certificate of Accreditation. This test is only authori willis for the duration of thedeclaration that circumstances e xist justifying theauthorizatio n of emergency use o f in vitro diagnostic test sfor detection and/o r diagnosis of CO VID-19 under Bonajnd73 4(b)(1) of the Act, 21 U.S .C. 360bbb-3(b)(1), unless theauthorizatio n is terminated or r evoked sooner. Urinalysis macro (dipstick) panel - [id number] 15:01:04 Test Item Value Reference Range Interpretation Comments Protein (test code = Protein) Negative Glucose (test code = Glucose) Negative [facility] ([facility]stick) panel - [id number] 09:46:52 Test Item Value Reference Range Interpretation Comments Protein (test code = Protein) Negative Glucose (test code = Glucose) Negative [facility]inal[facility] macro (dipstick) panel - [id number] 09:46:52 Test Item Value Reference Range Interpretation Comments Protein (test code = Protein) Negative Glucose (test code = Glucose) Negative [facility] Medical[facility]inalysis macro (dipstick) panel - [id number] 13:46:33 Test Item Value Reference Range Interpretation Comments Protein (test code = Protein) Negative Glucose (test code = Glucose) Negative [facility] Medical[facility]inalysis macro (dipstick) panel - [id number] 13:46:33 Test Item Value Reference Range Interpretation Comments Protein (test code = Protein) Negative Glucose (test code = Glucose) Negative [facility] MedicalStreptococcus agalactiae [Presence] in Unspecified specimen by Organism specific [id number] 00:00:00 Test Item Value Reference Range Interpretation Comments Benzthiazide [Mass/volume] in Urine negative negative (test code = 3400-9) [facility] MedicalStreptococcus agalactiae [Presence] in Unspecified specimen by Organism specific [id number] 00:00:00 Test Item Value Reference Range Interpretation Comments Benzthiazide [Mass/volume] in Urine negative negative (test code = 3400-9) [facility] MedicalUrinalysis macro (dipstick) panel - [id number] 14:44:00 Test Item Value Reference Range Interpretation Comments Protein (test code = Protein) Negative Glucose (test code = Glucose) Negative [facility] Medical[facility]inalysis macro (dipstick) panel - [id number] 14:44:00 Test Item Value Reference Range Interpretation Comments Protein (test code = Protein) Negative Glucose (test code = Glucose) Negative [facility] MedicalReagin Ab [Presence] in Serum by [id number] 00:00:00 Test Item Value Reference Range Interpretation Comments ethnicity: (test code = other ethnicity:) race: (test code = race:) white () RPR (test code = RPR) non-reactive non-reactive [facility] MedicalHIV 1+2 Ab+HIV1 p24 Ag [Presence] in Serum or Plasma by [id number] 00:00:00 Test Item Value Reference Range Interpretation Comments ethnicity: (test code = other ethnicity:) race: (test code = race:) white () HIV Ag/Ab (test code = HIV non-reactive non-reactive Ag/Ab) [facility]agin Ab [Presence] in Serum by [id number] 00:00:00 Test Item Value Reference Range Interpretation Comments ethnicity: (test code = other ethnicity:) race: (test code = race:) white () RPR (test code = RPR) non-reactive non-reactive [facility] MedicalHIV 1+2 Ab+HIV1 p24 Ag [Presence] in Serum or Plasma by [id number] 00:00:00 Test Item Value Reference Range Interpretation Comments ethnicity: (test code = other ethnicity:) race: (test code = race:) white () HIV Ag/Ab (test code = HIV non-reactive non-reactive Ag/Ab) [facility]
[2022-09-03 12:41] LABS: Absolute Lymphocytes (CBC) 1.6 K/uL (0.7-4.9); Hematocrit 39.3 % (36.0-45.0); MCV 90.4 fL (80-100); RBC Red Blood Cell Count 4.35 M/uL (3.86-4.86)
[2022-09-03 12:58] LABS: Potassium 3.5 mmol/L (3.5-5.1); Troponin High Sensitivity 4.5 pg/mL (<58.9)
--- NOTE | 2022-09-03 13:16 | RAD REPORT ---
EXAM DESCRIPTION: RAD - Chest Single View - 09/03/2022 12:11 pm CLINICAL HISTORY: CHEST PAINleft side COMPARISON: Portable 12/13/2019 TECHNIQUE: AP portable chest image was obtained 09/03/2022 12:11 pm . FINDINGS: Lungs are clear. Lung parenchymal pattern matches comparison. Heart and vasculature are no rmal. No measurable pleural effusion and no pneumothorax. No acute bony abnormality seen. No acute ao rtic findings suspected. IMPRESSION: No acute cardiopulmonary process. No significant change from comparison study.
--- NOTE | 2022-09-03 13:26 | RAD REPORT ---
EXAM DESCRIPTION: CT - Chest For Pe Angio - 09/03/2022 1:13 pm CLINICAL HISTORY: Chest pain COMPARISON: 2019 TECHNIQUE: Dynamically enhanced axial 3 mm thick images of the chest were obtained during administra tion of <100> mL Isovue 370 IV contrast. Coronal and oblique reconstruction images were generated and reviewed. Exam utilizes a protocol for optimal evaluation of pulmonary arterial tree. Maximum intensity projections 3D imaging was utilized All CT scans are performed using dose optimization technique as appropriate and may include automated exposure control or mA/KV adjustment according to patient size. FINDINGS: A pulmonary embolus is not seen. A thoracic aortic aneurysm is not noted. A pleural effusion is not seen. A pericardial effusion is not seen. A lung consolidation is not present. IMPRESSION: Negative for a pulmonary embolism.
--- NOTE | 2022-09-03 13:46 | ER ---
Nurse's Notes [facility] Name: Francheska Cevallos Age: 32 yrs Sex: Female : 1990 Arrival Date: 09/03/2022 Time: 10:25 Bed 12 Private MD: Diagnosis: Chest pain, unspecified Presentation: 09/03 10:50 Chief complaint: Patient states: Sharp pain in left side of chest when taking a deep jl7 breath x 1 week, "I've noticed it happen three times, last time was yesterday while I was driving.". Coronavirus screen: At this time, the client does not indicate any symptoms associated with coronavirus-19. Ebola Screen: No symptoms or risks identified at this time. Initial Sepsis Screen: Does the patient meet any 2 criteria? No. Patient's initial sepsis screen is negative. Does the patient have a suspected source of infection? No. Patient's initial sepsis screen is negative. Risk Assessment: Do you want to hurt yourself or someone else? Patient reports no desire to harm self or others. Onset of symptoms was August 27, 2022. 10:50 Method Of Arrival: Ambulatory 7 10:50 Acuity: BEATRIS 3 jl7 Triage Assessment: 10:52 General: Appears in no apparent distress. uncomfortable, Behavior is calm, cooperative, jl7 appropriate for age. Pain: Complains of pain in anterior aspect of left upper chest Pain currently is 0 out of 10 on a pain scale. at worst was 4 out of 10 on a pain scale. Cardiovascular: Patient's skin is warm and dry. 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 - Social history:: Smoking status: Patient denies any tobacco usage or history of. Screenin:40 Abuse screen: Denies threats or abuse. Denies injuries from another. Nutritional ko1 screening: No deficits noted. Tuberculosis screening: No symptoms or risk factors identified. Fall Risk None identified. Assessment: 12:40 General: Appears in no apparent distress. comfortable, Behavior is calm, cooperative, ko1 appropriate for age. Pain: Complains of pain in chest and anterior aspect of left upper chest Pain does not radiate. Pain began gradually. Neuro: No deficits noted. Cardiovascular: Reports chest pain. Respiratory: No deficits noted. GI: No deficits noted. : No deficits noted. EENT: No deficits noted. Derm: No deficits noted. Musculoskeletal: No deficits noted. Vital Signs: 10:50 BP 118 / 77; Pulse 84; Resp 17; Temp 99; Pulse Ox 99% ; Weight 74.39 kg; Height 5 ft. 2 jl7 in. (157.48 cm); Pain 0/10; 10:50 Body Mass Index 30.00 (74.39 kg, 157.48 cm) 7 ED Course: 10:25 Patient arrived in ED. as 10:30 Luis Angel Means PA is PHCP. [facility] 10:30 Gutierrez Lan MD is Attending Physician. [facility] 10:52 Triage completed. jl7 10:52 Arm band placed on right wrist. jl7 11:01 EKG done, by ED staff, reviewed by Luis Angel LOUISE. jl7 12:12 XRAY Chest (1 view) In Process Unspecified. EDMS 12:34 Sasha Calderón, RN is Primary Nurse. ko1 12:34 Initial lab(s) drawn, by nh, sent to lab. Inserted saline lock: 20 gauge in right em1 antecubital area, using aseptic technique. Blood collected. 12:40 Patient has correct armband on for positive identification. Bed in low position. Call ko1 light in reach. Side rails up X 1. Client placed on continuous cardiac and pulse oximetry monitoring. NIBP monitoring applied. ekg monitor on. 12:40 No provider procedures requiring assistance completed. Patient maintains SpO2 ko1 saturation greater than 95% on room air. 12:51 Awaiting lab results, Awaiting radiology results. ko1 13:15 CT Chest For PE Angio In Process Unspecified. EDMS 13:59 IV discontinued, intact, bleeding controlled, No redness/swelling at site. Pressure ko1 dressing applied. Administered Medications: No medications were administered Medication: 12:40 VIS not applicable for this client. ko1 Outcome: 13:46 Discharge ordered by . jm 13:59 Discharged to home ambulatory. ko1 13:59 Condition: good 13:59 Discharge instructions given to patient, Instructed on discharge instructions, follow up and referral plans. medication usage, Demonstrated understanding of instructions, follow-up care, medications, Prescriptions given X 2. 13:59 Patient left the ED. ko1 Signatures: Dispatcher [employer] EDMS Luis Angel Means PA PA jmm Martinez, Amelia as Martinez, Eric 1 Melony Newman RN RN jl7 Honey James RN RN bm7 Sasha Calderón RN RN ko1 Corrections: (The following items were deleted from the chart) 12:45 12:43 Neuro: Reports Denies [email or web address]
--- NOTE | 2022-09-03 13:46 | EDPHYS ---
Physician Documentation [facility] Name: Francheska Cevallos Age: 32 yrs Sex: Female : 1990 Arrival Date: 09/03/2022 Time: 10:25 Bed 12 Private MD: ED Physician Gutierrez Lan HPI: 09/03 10:54 This 32 yrs old Female presents to ER via Ambulatory with complaints of Chest Pain. m 10:54 The patient or guardian reports chest pain that is located primarily in the substernal [facility] area. The pain does not radiate. This is a 32 year old female with no chronic medical conditions that presents to the ED with complaints of intermittent left sided chest pain she describes as sharp. Deep inspiration worsens symptoms. Denies shortness of breath. patient recently recovered from influenza. 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 - Social history:: Smoking status: Patient denies any tobacco usage or history of. ROS: 10:54 Constitutional: Negative for fever, chills, and weight loss. jmm 10:54 Cardiovascular: Positive for chest pain. 10:54 All other systems are negative. Exam: 10:54 Constitutional: This is a well developed, well nourished patient who is awake, alert, jmm and in no acute distress. Head/Face: atraumatic. Eyes: EOMI, no conjunctival erythema appreciated ENT: Moist Mucus Membranes Neck: Trachea midline, Supple Chest/axilla: Normal chest wall appearance and motion. Cardiovascular: Regular rate and rhythm. No edema appreciated Respiratory: Normal respirations, no respiratory distress appreciated Abdomen/GI: Non distended Back: Normal ROM Skin: General appearance color normal MS/ Extremity: Moves all extremities, no obvious deformities appreciated, no edema noted to the lower extremities Neuro: Awake and alert Psych: Behavior is normal, Mood is normal, Patient is cooperative and pleasant 10:54 ECG was reviewed by the Attending Physician. Vital Signs: 10:50 BP 118 / 77; Pulse 84; Resp 17; Temp 99; Pulse Ox 99% ; Weight 74.39 kg; Height 5 ft. 2 jl7 in. (157.48 cm); Pain 0/10; 10:50 Body Mass Index 30.00 (74.39 kg, 157.48 cm) jl7 MDM: 10:59 Patient medically screened. [facility] 13:45 Data reviewed: vital signs, nurses notes. Counseling: I had a detailed discussion with [facility] the patient and/or guardian regarding: the historical points, exam findings, and any diagnostic results supporting the discharge/admit diagnosis, lab results, radiology results, the need for outpatient follow up, to return to the emergency department if symptoms worsen or persist or if there are any questions or concerns that arise at home. 09/03 10:54 Order name: Basic Metabolic Panel; Complete Time: 13:[address] [facility] 09/03 10:54 Order name: CBC with Diff; Complete Time: 13:[address] [facility] 09/03 10:54 Order name: Troponin HS; Complete Time: 13:[address] [facility] 09/03 10:54 Order name: XRAY Chest (1 view); Complete Time: 13:[address] [facility] 09/03 10:54 Order name: D-Dimer; Complete Time: 13:[address] [facility] 09/03 12:48 Order name: CT Chest For PE Angio; Complete Time: 13:[address] [facility] 09/03 10:54 Order name: EKG; Complete Time: 10:[address] [facility] 09/03 10:54 Order name: Cardiac monitoring; Complete Time: 12:[address] [facility] 09/03 10:54 Order name: EKG - Nurse/Tech; Complete Time: 11:[address] [facility] 09/03 10:54 Order name: IV Saline Lock; Complete Time: 12:[address] [facility] 09/03 10:54 Order name: Labs collected and sent; Complete Time: 12:[address] [facility] 09/03 10:54 Order name: O2 Per Protocol; Complete Time: 12:[address] [facility] 09/03 10:54 Order name: O2 Sat Monitoring; Complete Time: 12:[address] [facility] EC:54 Rate is 71 beats/min. Rhythm is regular. QRS [place] is Normal. NE interval is normal. QRS jmm interval is normal. QT interval is normal. No Q waves. T waves are Normal. No ST changes noted. Reviewed by me. Administered Medications: No medications were administered Disposition: 16:18 Co-signature as Attending Physician, Gutierrez Lan MD I agree with the assessment and kdr plan of care. Disposition Summary: 09/03/22 13:46 Discharge Ordered Location: Home [facility] Condition: Stable jmm Diagnosis - Chest pain, unspecified jmm Followup: jmm - With: Private Physician - When: 2 - 3 days - Reason: Recheck today's complaints, Continuance of care, Re-evaluation by your physician Discharge Instructions: - Discharge Summary Sheet [facility] - Nonspecific Chest Pain, Adult [facility] Forms: - Medication Reconciliation Form [facility] - Thank You Letter [facility] - Antibiotic Education [facility] - Prescription Opioid Use [facility] Prescriptions: - Medrol (Yair) 4 mg Oral Tablets, Dose Pack - take 1 tablet by ORAL route as directed - follow package instructions; 1 jmm packet; Refills: 0, Product Selection Permitted - orphenadrine citrate 100 mg Oral Tablet Sustained Release - take 1 tablet by ORAL route 2 times per day As needed; 20 tablet; Refills: 0, jmm Product Selection Permitted Signatures: Dispatcher [employer] Gutierrez Blanton MD MD [facility] Luis Angel Means PA PA [facility] Melony Newman, RN RN jl7
[2022-09-03 14:38] VITALS: BP 118/77; TEMP 99; O2SAT 99
--- NOTE | 2022-09-04 08:39 | EKG ---
Test Date: 2022-09-03 Test Time: 10:57:55 Sisal Picker: JEANIE MEASUREMENT RESULTS: Intervals: Rate: 71 AK: 140 QRSD: 86 QT: 392 QTc: 425 [place]: P: 58 AK: 140 QRS: 41 T: 43 INTERPRETIVE STATEMENTS: Normal sinus rhythm Normal ECG Compared to ECG 12/13/2019 21:23:11 No significant changes Electronically Signed On 09-04-22 08:34:51 CAMP BOSS by Ru Zavala
== END 2022-09-03 13:59 | disposition home or self-care (01) ==
LOC: ER 10:21
DX: R07.89 Other chest pain (principal)
CPT/HCPCS: 93005; 85025; 80048; 36415; 85379; 84484; 71275; 71045; 99285; Q9967

== ENCOUNTER 2022-09-10 22:43 | Emergency (ER) | payer OTHER ==
--- OUTSIDE RECORDS SUMMARY | 2022-09-10 22:47 | XMS REPORT | Continuity of Care Document ---
:1990 Author Organization [facility] t Address [address] [place] [address] Care Team Providers Name Role Phone AGNIESZKA GILLIS Attending Clinician Unavailable PAM_EDUARDO_Cleve_Cecil Attending Clinician Unavailable Cheng Poon Attending Clinician [phone] Cornell Richardson Attending Clinician Unavailable Cheng Poon Attending Clinician Unavailable Ledy Attending Clinician Unavailable Clarice_Cecil Admitting Clinician Unavailable Cheng Poon Admitting Clinician Unavailable Ledy Admitting Clinician Unavailable Payers Payer Name Policy Type Policy Number Effective Date Expiration Date S rian AETNA 2 [id number] 2022 00:00:00 AETNA (POS) [id number] 2013 00:00:00 AETNA HMO [id number] 2013 00:00:00 Problems Condition Condition Condition Status [...] Allergie 2-19 [facility] 00 [facility] No Known DA Active U 2015-09 [facility] Allergie 0-04 [facility] 00 [facility] NO KNOWN Drug Active [facility] ALLERGIE Class ity of S [facility] Social History Smoking Status Start Date Stop [...] Source Name Name influenza, influenza, 2016-06-06 Completed [facility] intradermal, intradermal, 11:53:56 quadrivalent, quadrivalent, preservative free preservative free influenza, influenza, 2016-06-06 Completed [facility] intradermal, intradermal, 11:53:56 quadrivalent, quadrivalent, [...] Diastolic 2021-11-02 00:00:00 78 mm[Hg] [facility] Height 2021-11-02 00:00:00 63 [in_i] [facility] BMI (Body Mass Index) 2021-11-02 00:00:00 31 kg/m2 [facility] BP Systolic 2021-11-02 00:00:00 122 mm[Hg] [facility] Body Weight 2021-11-02 00:00:00 175 [lb_av] [facility] BP Diastolic 2021-09-15 00:00:00 81 mm[Hg] [facility] Height 2021-09-15 00:00:00 63 [in_i] Reena [...] / Time Performed Performing Clinician Moises burton [id number] 2021-09-17 00:00:[address] [id number] 2021-09-17 00:00:[address] [place], obstetric, 1st 2021-02-07 00:00:00 [facility] dical [facility] Plan of Care Planned Activity Planned Date Details Comments Source Diagnostic Test 2021-09-15 00:00:00 urinalysis, dipstick [facility] Pending [code = urinalysis, dipstick] Encounters Start End Encounter Admission Attending Care Care Encounter Source Date/Time Date/Time Type Type Clinicians Facility Department ID 2022-09-03 2022-09-03 Outpatient ROSEMARIE GILLIS [id number] Rosemarie 00:00:00 00:00:00 AGNIESZKA garcia 2021-11-04 2021-11-04 Outpatient GC_[facility]AOM[facility]_ PRIV PRIV [id number] [facility] 06:00:00 06:00:00 Cleve_G [id number] [facility] 2021-11-02 2021-11-02 Outpatient GC_SWHAOM[facility]_ PRIV PRIV [id number] [facility] 12:18:00 12:18:00 Cleve_G [id number] [facility] 2021-11-02 2021-11-02 [facility] 00:00:00 00:00:00 R[facility] [place] - [facility] al Cleve GC_SWHAOMC_ MD: [address] [facility], [address], [place] [address] , Ph. 2021-11-02 2021-11-02 Outpatient Cleve, PRIV PRIV [id number] 00:00:00 00:00:00 Cheng [id number] Pravin [id number] 2021-11-01 2021-11-01 Outpatient GC_[facility]_ PRIV PRIV [id number] [facility] 06:06:00 06:06:00 Cleve_G [id number] [facility] 2021-10-28 2021-10-28 Outpatient GC_SWHAOM[facility]_ PRIV PRIV [id number] [facility] 12:08:00 12:08:00 Cleve_G [id number] [facility] 2021-10-07 2021-10-07 Outpatient GC_[facility]WHAOM[facility]_ PRIV PRIV [id number] [facility] 04:32:00 04:32:00 Cleve_G [id number] [facility] 2021-09-19 2021-09-19 Emergency EM Frida-G [facility] [id number] [facility] 15:14:00 19:43:00 omez, 24 [facility] 2021-09-17 2021-09-19 Inpatient EM Cleve [facility] OB [id number] 610 [facility] 05:57:00 10:34:00 Cheng [facility] 2021-09-16 2021-09-16 Outpatient GC_[facility]AOM[facility]_ PRIV PRIV [id number] [facility] 02:59:00 02:59:00 Bird [id number] [facility] 2021-09-15 2021-09-15 Outpatient GC_[facility]_ PRIV PRIV [id number] [facility] 03:57:00 03:57:00 Bird [id number] [facility] 2021-09-15 2021-09-15 Outpatient Cleve PRIV PRIV [id number] 00:00:00 00:00:00 Cheng [id number]-b Pravin [id number] 2021-09-15 2021-09-15 Cheng [facility] [id number] [facility] 00:00:00 00:00:00 [facility] SHERYL Lazo MD: [address], [place] [address] , Ph. 2021-09-09 2021-09-09 Outpatient GC_[facility]_ PRIV PRIV [id number] [facility] 01:46:00 01:46:00 Bird [id number] Medi [facility] 2021-09-08 2021-09-08 Outpatient GC_SWHAOMC_ PRIV PRIV [id number] [facility] 10:39:00 10:39:00 Bird [id number] [facility] 2021-09-08 2021-09-08 Outpatient Cleve, PRIV PRIV [id number] [id number] 00:00:00 00:00:00 Cheng [id number] Pravin [id number] 2021-09-08 2021-09-08 Cheng [facility] [id number] [facility] 00:00:00 00:00:00 [facility] katlin PoonSHERYL rodriguez MD: [address] [facility] [place], [address], [place] [address] , Ph. 2021-09-01 2021-09-01 Cheng [facility] [id number] [facility] 00:00:00 00:00:00 [facility] - Medic SHERYL Lazo MD: [address], [place] [address] , Ph. 2021-08-28 2021-08-28 Outpatient GC_SWHAOMC_ PRIV PRIV [id number] [facility] 02:12:00 02:12:00 Bird [id number] [facility] 2021-08-18 2021-08-18 Cheng [facility] [id number] [facility] 00:00:00 00:00:00 [facility] [place] [facility] SHERYL Lazo MD: [address], [place] [address] , Ph. 2021-02-08 2021-02-08 Outpatient GC_[facility]AOM[facility]_ PRIV PRIV [id number] [facility] 10:38:00 10:38:00 Bird [id number] [facility] 2021-02-07 2021-02-07 Outpatient GC_SWHAOMC_ PRIV PRIV [id number] [facility] 11:21:00 11:21:00 Bird [id number] [facility] 2021-02-07 2021-02-07 Outpatient Cleve, PRIV PRIV [id number] 00:00:00 00:00:00 Cheng [id number] Pravin [id number] 2021-02-07 2021-02-07 Cheng [facility] 11 [facility] 00:00:00 00:00:00 [facility] [place] [facility] SHERYL Lazo MD: [address] [facility], [address], [place] [address] , Ph. 2021-02-06 2021-02-06 Outpatient GC_SWHAOMC_ PRIV PRIV [id number] [facility] 02:12:00 02:12:00 Bird [id number] [facility] 2021-01-20 2021-01-20 Outpatient GC_SWHATBIC PRIV PRIV [id number] [facility] 01:05:00 01:05:00 _Jyotimichael [id number] Medic al 2019-12-25 2019-12-25 Outpatient R [facility] [id number] [facility] 20:15:00 20:15:00 [facility] 2019-12-25 2019-12-25 Outpatient R [facility] [id number] [facility] 20:15:00 20:15:00 [id number] [facility] Results Test Description Test Time Test [...] CUT OFF: 25 ng/mL PHENCU) B-TYPE NATRIURETIC [id number] 19:09:00 Test Item Value Reference Range Interpretation Comments B-TYPE NATRIURETIC PEPTIDE (test 65.60 pg/mL 0-100 N code = BNP) COMPREHENSIVE METABOLIC [id number] 17:22:00 Test Item Value Reference Range Interpretation [...] 130 units/L 46-116 H code = ALKP) [id number] 17:22:00 Test Item Value Reference Range Interpretation Comments TROPONIN-I (test 4.1 pg/mL <51.4 N Please Note :New method is code = TROPI) in use for laurent suring Troponin Sep 14 2021Units are pg/mL which differs from the prior testmethodology (ng/mL) by a factor of 100 0. D-DIMER [id number] 16:47:00 Test Item Value Reference Range Interpretation [...] D VT. UA RFLX MICR CULT IF [id number] 16:42:00 Test Item Value Reference Range Interpretation [...] culture: Suprapubic PainSpecimen Description: CLEAN CATCHCBC W/AUTO [id number] 16:09:00 Test Item Value Reference Range Interpretation [...] NORMAL code = PLTMR) - CT ANGIO [id number] 00:00:00 [facility] 1990 Sex: F Patient Name: ASH EVANS Unit No: [id number] EXAMS: CPT CODE: [id number] CT ANGIO CHEST 59844 Radiation Dose CTDIVOL = 22.2 (mGy): DLP = 393.93 (mGy-cm) PROCEDURE INFORMATION: Exam: CTA Chest With Contrast Exam date and time: 09/19/2021 6:20 PM Age: 31 years old Clinical indication: Other: Palpitations , chest pain elevated d dimer TECHNIQUE: Imaging protocol: Computed tomographic angiography of the chest with contrast. 3D rendering (Not supervised by radiologist): MIP and/or 3D reconstructed imageswere created by the technologist. Radiation optimization: All CT scans at this facility use at leastone of these dose optimization techniques: automated exposure control; mA and/or kV adjustment per patient size (includes targeted exams where dose is matched to clinical indication); or iterative reconstruction. Contrast material: ISOVUE 300; Contrast volume: 100 ml; Contrast route: INTRAVENOUS (IV);COMPARISON: No relevant prior studies available. RADIATION DOSE [...] is not fully included onthe study [facility] NAME: ASH EVANS Radiology Department PHYS: Horace Garcíairo [address] : 1990 AGE: 31 SEX: F [place], [place] [address] LOC: SamiraERS PHONE #: [phone] EXAM DATE: 09/19/2021 STATUS: REG ER FAX #: [phone] RAD NO: Page 1 Signed Report 1 Patient Name: ASH EVANS Unit No: [id number] EXAMS: CPT CODE: [id number] CT ANGIO CHEST 92607 (Continued) IMPRESSION: No acute process within chest. No pulmonary embolus. at 1911 Reported and signed by: Héctor Plunkett MD CC: Cornell Richardson MD; Cheng Poon Technologist: Kamini Oleary RT, CT CTDI: 22.20 DLP: 393.93 Trnscrbd D/ (1910) GCD.CPS [facility] NAME: GANESH SEGUNDOASH RAYMUNDO Radiology Department PHYS: Cornell García [address] : 1990 AGE: 31 SEX: F [place], [place] [address] LOC: SamiraERS PHONE #: [phone] EXAM DATE: 09/19/2021 STATUS: REG ER FAX #: [phone] RAD NO: Page 2 Signed Report 1 Patient Name: ASH EVANS Unit No: [id number] EXAMS: CPT CODE: [id number] CT ANGIO CHEST 15146 (Continued) Orig Print D/T: S: 09/19/2021 (191) [facility] NAME: EVANSASH RAYMUNDO Radiology Department PHYS:SASHA BlnacaCampbellCornell [address] : 1990 AGE: 31 SEX: F [place], [place] [address] LOC: BERTHA PHONE #: [phone] EXAM DATE: 09/19/2021 STATUS: REG ER FAX #: [phone] RAD NO: Page 3 Signed Report 1HGB [id number] 07:47:00 Test Item Value Reference Range Interpretation Comments HEMOGLOBIN (test code = HGB) 9.4 g/dL 10.1-13.8 L HEMATOCRIT (test code = HCT) 29.2 % 32.5-41.8 L AG HEPATITIS B [id number] 07:22:00 Test Item Value Reference Range Interpretation Comments AG HEPATITIS B SURFACE (test code NONREACTIVE NONREACTIVE = HBSAG) AB HEPATITIS C [id number] 07:22:00 Test Item Value Reference Range Interpretation Comments AB HEPATITIS C (test code = NONREACTIVE NONREACTIVE HCVAB) SIGNAL TO CUTOFF (test code = <0.02 <0.80 N CUTOFF) AB [id number] 07:22:00 Test Item Value Reference Range Interpretation Comments AB TREPONEMA (test code = TREPAB) NONREACTIVE NONREACTIVE AB HIV 1 07:22:00 Test Item Value Reference Range Interpretation Comments AB HIV 1 2 (test NONREACTIVE NONREACTIVE Done by [facility] code = [id number]) 4th Gen HIV Ag/Ab Combo Screen CBC W/AUTO [id number] 06:27:00 Test Item Value Reference Range Interpretation [...] code = PLTMR) COVID 19 Asymptomatic IH [id number] 06:20:00 Test Item Value Reference Range Interpretation [...] and/o r diagnosis of CO VID-19 under Fpadfmj60 4(b)(1) of the Act, 21 U.S .C. 360bbb-3(b)(1), unless theauthorizatio n is terminated or r evoked sooner. Urinalysis macro (dipstick) panel - [id number] 15:01:04 Test Item Value Reference Range Interpretation Comments Protein (test code = Protein) Negative Glucose (test code = Glucose) Negative [facility] (dipstick) panel - [id number] 09:46:52 Test Item Value Reference Range Interpretation Comments Protein (test code = Protein) Negative Glucose (test code = Glucose) Negative [facility] Medical[facility]inalysis macro (dipstick) panel - [id number] 09:46:52 Test Item Value Reference Range Interpretation Comments Protein (test code = Protein) Negative Glucose (test code = Glucose) Negative [facility] Medical[facility]inalysis macro (dipstick) panel - [id number] 13:46:33 Test Item Value Reference Range Interpretation Comments Protein (test code = Protein) Negative Glucose (test code = Glucose) Negative [facility] Medical[facility]inalysis macro (dipstick) panel - [id number] 13:46:33 Test Item Value Reference Range Interpretation Comments Protein (test code = Protein) Negative Glucose (test code = Glucose) Negative [facility] MedicalStreptococcus agalactiae [Presence] in Unspecified specimen by Organism specific [id number] 00:00:00 Test Item Value Reference Range Interpretation Comments Benzthiazide [Mass/volume] in Urine negative negative (test code = 3400-9) [facility] MedicalStreptococcus agalactiae [Presence] in Unspecified specimen by Organism specific [id number] 00:00:00 Test Item Value Reference Range Interpretation Comments Benzthiazide [Mass/volume] in Urine negative negative (test code = 3400-9) [facility] MedicalUrinalysis macro (dipstick) panel - [id number] 14:44:00 Test Item Value Reference Range Interpretation Comments Protein (test code = Protein) Negative Glucose (test code = Glucose) Negative [facility] MedicalUrinalysis macro (dipstick) panel - [id number] 14:44:00 Test Item Value Reference Range Interpretation Comments Protein (test code = Protein) Negative Glucose (test code = Glucose) Negative [facility] MedicalReagin Ab [Presence] in Serum by [id number] 00:00:00 Test Item Value Reference Range Interpretation Comments ethnicity: (test code = other ethnicity:) race: (test code = race:) white () RPR (test code = RPR) non-reactive non-reactive [facility]HIV 1+2 Ab+HIV1 p24 Ag [Presence] in Serum or Plasma by [id number] 00:00:00 Test Item Value Reference Range Interpretation Comments ethnicity: (test code = other ethnicity:) race: (test code = race:) white () HIV Ag/Ab (test code = HIV non-reactive non-reactive Ag/Ab) [facility] MedicalReagin Ab [Presence] in Serum by [id number] 00:00:00 Test Item Value Reference Range Interpretation Comments ethnicity: (test code = other ethnicity:) race: (test code = race:) white () RPR (test code = RPR) non-reactive non-reactive [facility]HIV 1+2 Ab+HIV1 p24 Ag [Presence] in Serum or Plasma by [id number] 00:00:00 Test Item Value Reference Range Interpretation Comments ethnicity: (test code = other ethnicity:) race: (test code = race:) white () HIV Ag/Ab (test code = HIV non-reactive non-reactive Ag/Ab) [facility]
--- NOTE | 2022-09-10 23:48 | ER ---
Nurse's Notes [facility] Name: Francheska Cevallos Age: 32 yrs Sex: Female : 1990 Arrival Date: 09/10/2022 Time: 22:47 Bed IW3 Private MD: Diagnosis: Paresthesia of skin;Radiculopathy, cervical region Presentation: 09/10 22:55 Chief complaint: Patient states: "Numbess and throbbing to the left side of my face and vc1 pain and pins and needles to my left arm. I was here a week ago for chest pain but they couldn't find anything wrong.". Coronavirus screen: Vaccine status: Patient reports being unvaccinated. Ebola Screen: No symptoms or risks identified at this time. Risk Assessment: Do you want to hurt yourself or someone else? Patient reports no desire to harm self or others. Onset of symptoms is unknown. 22:55 Method Of Arrival: Ambulatory vc1 22:55 Acuity: BEATRIS 3 vc1 22:55 Initial Sepsis Screen: Does the patient meet any 2 criteria? No. Patient's initial vc1 sepsis screen is negative. 23:00 Initial Sepsis Screen: Does the patient have a suspected source of infection? No. vc1 Patient's initial sepsis screen is negative. Triage Assessment: 22:58 General: Appears in no apparent distress. uncomfortable, Behavior is calm, cooperative, vc1 appropriate for age. Pain: Denies pain. EENT: Reports tingling to face. Neuro: Reports pins and needles to left arm and tingling to left side of face. 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 - Social history:: Smoking status: Patient denies any tobacco usage or history of. - Family history:: not pertinent. - Hospitalizations: : No recent hospitalization is reported. Screenin:58 Abuse screen: Denies threats or abuse. Nutritional screening: No deficits noted. vc1 Tuberculosis screening: No symptoms or risk factors identified. Fall Risk Vital Signs: 22:55 Weight 74.39 kg; Height 5 ft. 2 in. (157.48 cm); Pain 0/10; vc1 23:02 Pulse 66; Resp 15; Temp 98.4; Pulse Ox 100% ; vc1 23:05 BP 107 / 69; vc1 22:55 Body Mass Index 30.00 (74.39 kg, 157.48 cm) vc1 ED Course: 22:47 Patient arrived in ED. jj6 22:50 Thomas Cain MD is Attending Physician. rn 22:57 Triage completed. vc1 22:59 Arm band placed on left wrist. vc1 23:18 CT Head C Spine In Process Unspecified. EDMS 09/11 00:06 No provider procedures requiring assistance completed. Patient did not have IV access vc1 during this emergency room visit. 00:18 Alem Arroyo, RN is Primary Nurse. vc1 Administered Medications: 00:05 Drug: Decadron (dexamethasone) 10 mg Route: IM; Site: left deltoid; vc1 00:05 Drug: Ketorolac 30 mg Route: IM; Site: right deltoid; vc1 Medication: 09/10 23:00 VIS not applicable for this client. vc1 Outcome: 23:47 Discharge ordered by . rn 09/11 00:06 Discharged to home ambulatory. vc1 Condition: good Discharge instructions given to patient, Instructed on discharge instructions, follow up and referral plans. medication usage, Demonstrated understanding of instructions, follow-up care, medications, Prescriptions given X 2. 00:18 Patient left the ED. vc1 Signatures: Dispatcher [employer] [facility] Thomas Cain MD MD rn Jeffries, Jennifer jj6 Alem Arroyo RN RN vc1
--- NOTE | 2022-09-10 23:48 | EDPHYS ---
Physician Documentation [facility] Name: Francheska Cevallos Age: 32 yrs Sex: Female : 1990 Arrival Date: 09/10/2022 Time: 22:47 Bed IW3 Private MD: ED Physician Thomas Cain HPI: 09/10 23:06 This 32 yrs old Female presents to ER via Ambulatory with complaints of Left side upper rn ext tingling/numbness, Left side facial tingling and numbness. 23:06 The patient presents to the emergency department with paresthesias of the left upper rn extremity, that is mild, left side of the face, that is mild. Onset: The symptoms/episode began/occurred 2 day(s) ago. Context: occurred at home, occurred while the patient was at rest. Associated signs and symptoms: Pertinent positives: paresthesias, Pertinent negatives: altered mental status, fever, headache, neck stiffness, seizure, syncope, near-syncope, blurred vision, double vision, visual field changes, loss of vision, weakness. Severity of symptoms: At their worst the symptoms were mild in the emergency department the symptoms are unchanged. The patient has not experienced similar symptoms in the past. The patient has not recently seen a physician. Pt reports left facial tingling and left arm tingling, began 2 days ago, intermittent, no trauma. Reports does a lot of lifting with left arm. No leg symptoms. NO fever. No weakness. Seen here recently for left sided chest pain that had neg w/u, prescribed steroids, did not take them. . 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 - Social history:: Smoking status: Patient denies any tobacco usage or history of. - Family history:: not pertinent. - Hospitalizations: : No recent hospitalization is reported. ROS: 23:06 Constitutional: Negative for fever, chills, and weight loss, Eyes: Negative for injury, rn pain, redness, and discharge, Neck: Negative for injury, pain, and swelling, Cardiovascular: Negative for chest pain, palpitations, and edema, Respiratory: Negative for shortness of breath, cough, wheezing, and pleuritic chest pain, Abdomen/GI: Negative for abdominal pain, nausea, vomiting, diarrhea, and constipation, Back: Negative for injury and pain, MS/Extremity: Negative for injury and deformity, Skin: Negative for injury, rash, and discoloration, Neuro: Negative for headache, weakness, and seizure. Exam: 23:06 Constitutional: This is a well developed, well nourished patient who is awake, alert, rn and in no acute distress. Head/Face: Normocephalic, atraumatic. Eyes: Periorbital areas with no swelling, redness, or edema. Neck: Trachea midline. Supple, full range of motion without nuchal rigidity, or vertebral point tenderness. No Meningismus. Cardiovascular: Regular rate and rhythm. No pulse deficits. Respiratory: No increased work of breathing, no retractions or nasal flaring. Abdomen/GI: Soft, non-tender Skin: Warm, dry MS/ Extremity: Pulses equal, no cyanosis. Neuro: Awake and alert, GCS 15, oriented to person, place, time, and situation. Cranial nerves II-XII grossly intact. Motor strength 5/5 in all extremities. Sensory grossly intact. Cerebellar exam normal. Normal gait. Vital Signs: 22:55 Weight 74.39 kg; Height 5 ft. 2 in. (157.48 cm); Pain 0/10; vc1 23:02 Pulse 66; Resp 15; Temp 98.4; Pulse Ox 100% ; vc1 23:05 BP 107 / 69; vc1 22:55 Body Mass Index 30.00 (74.39 kg, 157.48 cm) vc1 MDM: 22:50 Patient medically screened. rn 23:45 Data reviewed: vital signs, nurses notes, radiologic studies, CT scan, and as a result, rn I will discharge patient. Counseling: I had a detailed discussion with the patient and/or guardian regarding: the historical points, exam findings, and any diagnostic results supporting the discharge/admit diagnosis, radiology results, the need for outpatient follow up, to return to the emergency department if symptoms worsen or persist or if there are any questions or concerns that arise at home. Special discussion: I discussed with the patient/guardian in detail that at this point there is no indication for admission to the hospital. It is understood, however, that if the symptoms persist or worsen the patient needs to return immediately for re-evaluation. Further emergent ED testing is not indicated at this point in time. I discussed with the patient/guardian in detail the need to arrange with the PCP or specialist further outpatient testing, MRI, Based on the history and exam findings, there is no indication for further emergent testing or inpatient evaluation. I discussed with the patient/guardian the need to see the neurologist for further evaluation of the symptoms. I discussed with the patient/guardian the need to see the primary care provider for further evaluation of the symptoms. 23:45 ED course: No acute findings on CT head/cspine. WIll treat as nerve/radiculopathy. . rn 09/10 23:03 Order name: CT Head C Spine rn Administered Medications: 09/11 00:05 Drug: Decadron (dexamethasone) 10 mg Route: IM; Site: left deltoid; vc1 00:05 Drug: Ketorolac 30 mg Route: IM; Site: right deltoid; vc1 Disposition Summary: 09/10/22 23:47 Discharge Ordered Location: Home rn Problem: new rn Symptoms: have improved rn Condition: Stable rn Diagnosis - Paresthesia of skin rn - Radiculopathy, cervical region rn Followup: rn - With: Private Physician - When: As needed - Reason: Recheck today's complaints, Re-evaluation by your physician Discharge Instructions: - Discharge Summary Sheet rn - Cervical Radiculopathy rn - Paresthesia rn Forms: - Medication Reconciliation Form rn - Thank You Letter rn - Antibiotic marketing summer intern - Prescription Opioid Use rn Prescriptions: - Cyclobenzaprine 10 mg Oral Tablet - take 1 tablet by ORAL route every 8 hours As needed; 15 tablet; Refills: 0, rn Product Selection Permitted - Medrol (Yair) 4 mg Oral Tablets, Dose Pack - take 1 tablet by ORAL route as directed - follow package instructions; 1 rn packet; Refills: 0, Product Selection Permitted Signatures: Dispatcher [employer] Thomas Gallegos MD MD rn Calcote, Vanessa, RN RN vc1
[2022-09-10] MEDS ORDERED: KETOROLAC 30 MG/ML INJ ONE (23:59)
[2022-09-10] MEDS ORDERED: dexAMETHasone 10 MG/ML VIAL ONE (23:59)
[2022-09-11 00:28] VITALS: TEMP 98.4; O2SAT 100
[2022-09-11 00:35] VITALS: BP 107/69
--- NOTE | 2022-09-11 17:24 | RAD REPORT ---
EXAM DESCRIPTION: CT - [id number] - 09/10/2022 11:16 pm CLINICAL HISTORY: The patient is 32 years old and is Female; left facial tingling, left arm tingling TECHNIQUE: Axial computed tomography images of the head/brain and cervical spine without intravenous contrast. Sagittal and coronal reformatted images were created and reviewed. This CT exam was pe rformed using one or more of the following dose reduction techniques: automated exposure control, a djustment of the mA and/or kV according to patient size, and/or use of iterative reconstruction techn ique. COMPARISON: No relevant prior studies available. FINDINGS: Brain: Unremarkable. No hemorrhage. No significant white matter disease. No edema. Ventricles: Unremarkable. No ventriculomegaly. Skull: No acute fracture. Sinuses: Unremarkable as visualized. No acute sinusitis. Mastoid air cells: Unremarkable as visualized. No mastoid effusion. Vertebrae: Unremarkable. No acute fracture. Normal alignment. Discs/spinal canal/neural foramina: No acute findings. No spinal canal stenosis. Soft tissues: Unremarkable. IMPRESSION: No acute intracranial abnormality. No acute findings in the cervical spine. 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 The interpreting radiologist is fully responsible for the content of the report.
== END 2022-09-11 00:18 | disposition home or self-care (01) ==
LOC: ER 22:43
DX: M54.12 Radiculopathy, cervical region (principal)
CPT/HCPCS: 70450; 72125; 96372; 99283; J1100